=== PATIENT | female | born 1995 | race Caucasian/White ===

== ENCOUNTER 2017-01-25 09:35 | Outpatient (CLI) | payer OTHER ==
--- NOTE | 2017-01-25 13:19 | MRI ---
EXAM: BRAIN MRI WITH AND WITHOUT CONTRAST: HISTORY: Migraine headache. Increased frequency for the past 2-3 months. History of Arnold-Chiari malformat ion with decompression in 2012. TECHNIQUE: A brain MRI was performed with and without intravenous Gadolinium administration. Multisequential, multiplanar imaging is performed. FINDINGS: No hemorrhage on the axial gradient echo sequence. Calvarium has a normal T1 marrow signal intensit y. Midline supratentorial brain parenchymal structures are unremarkable. The central arterial flow voids are maintained. Absent restricted diffusion. No significant T2 or FLAIR white matter hyperintensities. The left and right cerebellar tonsils do extend below the level of the foramen magnum and have a sli ghtly peg-shaped appearance. Findings are compatible with known history of Chiari-I malformation. Suboccipital craniectomy is identified. No pathologic enhancement of the brain parenchyma. No parenchymal mass, mass effect, or midline shift. Rico volume is age appropriate. Cortical rachel -white matter differentiation is preserved. Ventricles and sulci are patent and symmetric. No evidence of hydrocephalus. Incidental developmental venous anomaly is noted in the right frontal lobe. IMPRESSION: 1. Postsurgical change compatible with decompression due to Chiari-I malformation. 2. Cerebellar tonsils with peg-shaped appearance compatible with known history of Chiari-I malforma tion. 3. No evidence of hydrocephalus. 4. No pathologic enhancement of the brain parenchyma. POS: [id number]
== END 2017-01-25 09:36 | disposition home or self-care (01) ==
LOC: TBSIIMAG 09:35
PROVIDERS: ATTEND Student in an Organized Health Care Education/Training Program
DX: G43.919 Migraine, unspecified, intractable, without status migrainosus (principal); R51 Headache; G93.5 Compression of brain; Z98.890 Other specified postprocedural states
CPT/HCPCS: 70553